=== PATIENT | female | born 2000 | race Two or more races ===

== ENCOUNTER 2022-02-21 18:03 | Emergency (ER) | payer OTHER ==
[~2022-02-21] VITALS: Ht 160 cm; Wt 54.4 kg
[2022-02-22] MEDS ORDERED: PEPCID40 MG PO (06:25)
[2022-02-22] MEDS ORDERED: ONDANSETRON ODT4 MG PO (06:25)
== END 2022-02-22 00:07 | disposition home or self-care (01) ==
LOC: ER 18:03
DX: K52.9 Noninfective gastroenteritis and colitis, unspecified (principal); Z91.018 Allergy to other foods

== ENCOUNTER 2022-02-22 01:42 | Emergency (ER) | payer OTHER ==
[~2022-02-22] VITALS: Ht 160 cm; Wt 61.2 kg
[2022-02-22] MEDS ORDERED: ONDANSETRON ODT4 MG PO (06:25)
[2022-02-22] MEDS ORDERED: PEPCID40 MG PO (06:25)
== END 2022-02-22 06:30 ==
LOC: ER 01:42
DX: R11.10 Vomiting, unspecified (principal)